=== PATIENT | male | born 1970 | race Caucasian/White ===

== ENCOUNTER 2018-07-26 01:05 | Outpatient (CLI) | payer MEDICAID, SELFPAY ==
--- NOTE | 2018-07-26 08:42 | DI.MRI_ITS ---
SYMPTOM/DIAGNOSIS: MEMORY CHANGES, HEADACHE, R41.3 BRAIN MRI: MRI examination of the brain was performed according to the usual protocol. No signal abnormality identified in the brain. Diffusion weighted imaging is within normal limits with no evidence of infarction. Susceptibility weighted imaging shows no evidence of intracranial hemorrhage. There is normal flow void in the [place] of [place] vasculature. Incidental note is made of mild deformity of the anterior contour of the medulla secondary to tortuous prominence of left vertebral artery. No associated signal abnormality is seen. Temporal bone structures appear intact. Orbital structures appear intact. CONCLUSION: No evidence of acute intracranial process.
== END 2018-07-26 01:25 ==
PROVIDERS: PCP Family Medicine; Visit Provider Nurse Practitioner Adult Health
DX: R51 Headache (principal); R41.3 Other amnesia
CPT/HCPCS: 70551

== ENCOUNTER 2018-09-01 08:45 | Emergency (ER) | payer MEDICAID, SELFPAY ==
[2018-09-01 08:53] VITALS: BP 147/87; PULSE 101; RESP 16; TEMP 37; O2SAT 97
--- NOTE | 2018-09-01 10:16 | ED.GENADUL_ITS ---
Discharge Plan Disposition Patient Disposition: HOME Condition: Stable Discharge Details Chief Complaint: RashLesion Clinical Impression: Varicella Primary Care Provider: Denis Barker ED Provider: Janet Chacon Home Meds and New Rx's Prescriptions: New valacyclovir 1 gram tablet 1,000 mg PO TID 7 Days Qty: 21 RF: 0 Continue naproxen 500 mg tablet 500 mg PO BID PRN (Reason: pain) Qty: 180 RF: 3 prochlorperazine maleate 5 mg tablet 5 mg PO Q8H PRN Qty: 30 RF: 3 topiramate [Topamax] 25 mg tablet 25 mg PO HS Qty: 60 RF: 2 Discharge Instructions Instructions: Chickenpox (ED) Additional Instructions: Take the antiviral therapy until finished. Take antihistamines to help with itching, such as Zyrtec or Asmita during the day, and Benadryl to help with sleeping at night. Wash hands frequently and be sure to keep lesions clean and dry. Wash with soap and water and apply bacitracin or Neosporin to wounds if any signs of infection such as pain, increased redness or swelling. Avoid excessive scratching of lesions as they can become secondarily infected. Follow-up with your primary care doctor in 1 week for re-evaluation. Return immediately to the emergency department any worsening or new concerning symptoms such as fever, inability to eat or drink, or any worsening symptoms. Discharge Data Discharge Date/Time-TO BE ENTERED AT DEPARTURE: 09/01/18 10:45 Discharge Physician: Janet Chacon Medical Decision Making 48yo M w/ diffuse pruritic rash on face, torso, upper extremities > lower extremities x 2 days. Recent exposure to shingles. No history of chickenpox per patient. Also admits to prodrome of subjective fever, chills, malaise, body aches. Vitals within normal limits. Afebrile. Patient appears nontoxic. Normal ENT exam. Lungs clear to auscultation. Abdomen soft and nontender. No meningeal signs. Lesions noted to scalp, face, neck, torso and upper extremities more than lower extremities appear in various stages, with papules, vesicles, erosions. Most likely consistent with varicella. As patient is immunocompetent , but to prevent complications of varicella, will treat with antiviral therapy. No signs of acute bacterial infection at this time. Patient given prescription for valacyclovir. Patient was instructed to take antihistamines as needed and directed for itching and to prevent scratching. Patient was instructed on the importance of handwashing and keeping area clean and dry to prevent secondary bacterial infection. Patient instructed to follow-up with primary care doctor for reevaluation and to return here with any worsening symptoms. HPI General Mode of arrival: ambulatory . Date/Time Provider Initiated Documentation: 09/01/18 09:22 . Limitations to Documentation: no limitations . Information obtained by: patient . HPI Narrative: Patient is a 48-year-old male who presents with diffuse pruritic rash on face, torso and upper extremities for the past 2 days. Pt states he was exposed to shingles from his father 2 weeks ago. Pt states he has never had chicken pox and he thinks this is what he has. States on the first day of rash, he developed subjective fever and chills, and body aches. He denies any other symptoms of ear pain, sore throat, cough, shortness of breath, abdominal pain, vomiting, diarrhea, recent travel, recent antibiotics, new meds/soaps/lotions/ detergents. Patient states he has been eating and drinking. No recent sexual exposure for the past 10 years. Related Data Home Medications Medication Instructions Recorded Confirmed naproxen 500 mg tablet 500 mg PO BID PRN #180 tab-cap 06/04/18 09/01/18 prochlorperazine maleate 5 mg 5 mg PO Q8H PRN #30 tab 06/24/18 09/01/18 tablet topiramate 25 mg tablet 25 mg PO HS #60 tab 06/24/18 09/01/18 valacyclovir 1,000 mg PO TID 7 Days #21 tab 09/01/18 Previous Rx's Medication Instructions Recorded naproxen 500 mg tablet 500 mg PO BID PRN #180 tab-cap 06/04/18 prochlorperazine maleate 5 mg 5 mg PO Q8H PRN #30 tab 06/24/18 tablet topiramate 25 mg tablet 25 mg PO HS #60 tab 06/24/18 valacyclovir 1,000 mg PO TID 7 Days #21 tab 09/01/18 Allergies Allergy/AdvReac Type Severity Reaction Status Date / Time No Known Allergies Allergy Unverified 09/01/18 08:58 General Stated Complaint: RashLesion HARMAN: 3 Review of Systems Review of Systems All systems reviewed & are unremarkable except as noted in HPI and below Constitutional Reports as per HPI, Denies chills and Denies fever(s) Eyes Denies blurry vision ENT Denies dizziness, Denies sore throat and Denies throat swelling Cardiovascular Denies chest pain and Denies dyspnea Respiratory Denies dyspnea Gastrointestinal Denies abdominal pain, Denies diarrhea and Denies vomiting Genitourinary Denies hematuria and Denies dysuria Musculoskeletal Denies back pain and Denies numbness Integumentary/Breasts Reports lesions and Reports rash Neurologic Denies dizziness and Denies numbness Allergic/Immunologic Denies throat swelling PFSH Arthritis (Chronic) Post concussion syndrome (Chronic) Chronic headaches (Acute) Family History Father Liver failure Family History Father Liver failure Medical History Arthritis (Chronic) Post concussion syndrome (Chronic) Chronic headaches (Acute) Social History lives independently: Yes current occupation: builder Smoking/Tobacco Use Status: Former Tobacco Use quit date: 10/31/01 alcohol intake: current alcohol intake frequency: a few times a month substance use type: marijuana Social History lives independently: Yes current occupation: builder Smoking/Tobacco Use Status: Former Tobacco Use quit date: 10/31/01 alcohol intake: current alcohol intake frequency: a few times a month substance use type: marijuana Exam Const General: cooperative and healthy appearing Orientation: alert and awake HENMT Head: normal to inspection Ears: hearing grossly normal bilaterally, external ears normal and TM's normal bilaterally General nose exam: external nose normal Face and sinus: normal facial exam Mouth: oral mucosae normal Teeth and gingiva: dentition normal Throat: posterior oropharynx normal Eyes General: appearance normal, both eyes and all related structures Eyelids: eyelids normal EOM: EOM intact bilaterally Neck Neck: normal visual inspection Lymphatic: no lymphadenopathy noted Chest Chest: normal inspection of the chest Resp Effort & Inspection: normal respiratory effort and able to speak in complete sentences Auscultation: clear to auscultation bilaterally Cardio Rate: regular rate Rhythm: regular rhythm GI Inspection: normal to inspection Palpation: soft, not firm, no guarding, no hepatosplenomegaly, no masses and nontender Auscultation: normal bowel sounds Skin Rashes: rashes noted (Diffuse noted to scalp, head, neck, torso, bilateral upper extremities, very minimal on the bilateral lower extremities - various stages - some erythematous papules, vesicles, erosions) Neuro General: alert and awake Cognition: normal cognition Speech: speech normal Gait: normal gait Motor: muscle tone normal throughout Sensory Exam: no sensory deficits noted Extrem General: normal to inspection, full ROM and normal capillary refill Psych Appearance: grossly normal Mental Status: mental status grossly normal Speech and Movement: speech and movement normal Affect: normal affect Thought Process: normal Course Vital Signs Temperature 98.6 F 09/01/18 08:53 Pulse 101 H 09/01/18 08:53 Respiratory Rate 16 09/01/18 08:53 Blood Pressure 147/87 H 09/01/18 08:53 Pulse Oximetry 97 09/01/18 08:53 Temperature 98.6 F 09/01/18 08:53 Temperature Source Skin 09/01/18 08:53 Pulse 101 H 09/01/18 08:53 Respiratory Rate 16 09/01/18 08:53 Respiratory Effort Non-Labored 09/01/18 08:53 Blood Pressure 147/87 H 09/01/18 08:53 Blood Pressure Position Sitting 09/01/18 08:53 Pulse Oximetry 97 09/01/18 08:53 Oxygen Delivery Method Room Air 09/01/18 08:53 Oxygen Flow Rate 0 09/01/18 08:53 Pain Level 0 09/01/18 08:53
[2018-09-01 10:43] VITALS: BP 132/86; PULSE 84; RESP 15; TEMP 37.1; O2SAT 97
== END 2018-09-01 10:45 | disposition home or self-care (01) ==
LOC: ER 10:44
PROVIDERS: Emergency Provider Physician Assistant; PCP Family Medicine
DX: B01.9 Varicella without complication (principal)
CPT/HCPCS: 99283

== ENCOUNTER 2018-11-21 00:20 | Outpatient (CLI) | payer MEDICAID, SELFPAY ==
--- NOTE | 2018-11-21 09:20 | DI.RAD_ITS ---
SYMPTOM/DIAGNOSIS: ? MENISCAL TEAR, INJURY, INTERNAL DERANGEMENT, PAIN, M23.209 RIGHT KNEE: Four views. No priors. There is mild narrowing of the medial femoral tibial joint space. Periarticular spurring is seen involving all three joint compartments. The soft tissues are unremarkable. IMPRESSION: Moderate degenerative changes of the right knee.
== END 2018-11-21 00:40 ==
PROVIDERS: PCP Family Medicine; Visit Provider Family Medicine
DX: M25.561 Pain in right knee (principal); M23.209 Derangement of unspecified meniscus due to old tear or injury, unspecified knee; M16.11 Unilateral primary osteoarthritis, right hip
CPT/HCPCS: 73562

== ENCOUNTER 2018-11-23 12:41 | Emergency (ER) | payer MEDICAID, SELFPAY ==
[2018-11-23 12:49] VITALS: BP 129/76; PULSE 93; RESP 16; TEMP 37; O2SAT 97
--- NOTE | 2018-11-23 12:59 | ED.GENADUL_ITS ---
Discharge Plan Disposition Patient Disposition: HOME Condition: Improving Discharge Details Chief Complaint: Orthopedic Clinical Impression: Arthritis, Strain of right knee Primary Care Provider: Denis Barker ED Provider: Reyes Jackson Home Meds and New Rx's Prescriptions: Continued naproxen 500 mg tablet 500 mg PO BID PRN (Reason: pain) Qty: 180 RF: 3 hydroxyzine HCl 25 mg tablet 25 mg PO PRN PRN (Reason: headache) Qty: 30 RF: 2 topiramate [Topamax] 100 mg tablet 100 mg PO DAILY Qty: 30 RF: 3 Discharge Instructions Instructions: Swollen Knee Joint (ED) Additional Instructions: Use crutches as needed for nonweightbearing and/or crutch walking. Continue the elevation, rest, ice to reduce discomfort with ibuprofen if needed. Follow-up with Dr. May as planned. Return to the emergency department for any acute concerns. Medical Decision Making 48-year-old male presents with ongoing knee pain that he states is recurrent and chronic. He had an outpatient evaluation including x-ray on November 21 which revealed degenerative changes without evidence of fracture. He has been referred to orthopedics. He has mild medial swelling on exam. He may have a bucket-handle meniscus tear versus exacerbation of underlying osteoarthritis given his evidence of degenerative changes on x-ray. Given crutches to be used as needed only. He will continue conservative management at home. He is stable for discharge HPI General Mode of arrival: ambulatory . Date/Time Provider Initiated Documentation: 11/23/18 12:47 . Limitations to Documentation: no limitations . History of Present Illness 48 year old M presents to the emergency department with the chief complaint of Right knee pain, medial, recurrent, described as moderate, Quality is described as aching and dull, and is localized to the right and lower extremity. Patient reports no radiation. Patient started experiencing this day(s) and it has been intermittent. Rest improves symptom(s), Movement worsens symptoms . Patient notes no other symptoms.. Patient did receive the following treatments prior to arrival, none Related Data Home Medications Medication Instructions Recorded Confirmed naproxen 500 mg tablet 500 mg PO BID PRN #180 tab-cap 06/04/18 11/23/18 hydroxyzine HCl 25 mg tablet 25 mg PO PRN PRN #30 tab 10/23/18 11/23/18 topiramate 100 mg tablet 100 mg PO DAILY #30 tab 10/23/18 11/23/18 Previous Rx's Medication Instructions Recorded naproxen 500 mg tablet 500 mg PO BID PRN #180 tab-cap 06/04/18 hydroxyzine HCl 25 mg tablet 25 mg PO PRN PRN #30 tab 10/23/18 topiramate 100 mg tablet 100 mg PO DAILY #30 tab 10/23/18 Allergies Allergy/AdvReac Type Severity Reaction Status Date / Time No Known Allergies Allergy Verified 11/23/18 12:52 General Stated Complaint: Orthopedic HARMAN: 4 Review of Systems Review of Systems For systems reviewed and otherwise negative. No falls, no numbness or tingling PFSH Medical History Arthritis (Chronic) Post concussion syndrome (Chronic) Chronic headaches (Acute) Family History Father Liver failure Social History lives independently: Yes highest education level completed: Associate degree: occupational, technical, vocational program current occupation: builder Smoking and Tabacco status: Former Tobacco Use quit date: 10/31/01 alcohol intake: current alcohol intake frequency: a few times a month substance use type: marijuana Exam Narrative Exam Narrative: GEN: awake, alert, oriented 3. Pleasant, well groomed, interactive. HEAD: Normocephalic, atraumatic ENT: Mucous membranes moist, oropharynx unremarkable, External ear exam unremarkable EYES: PERRL, EOMI EXT: Full ROM, no edema, no rash. Mild swelling and tenderness of right medial knee. No significant laxity. With full flexion of the knee there is medial clicking Neuro: Grossly normal neurologic exam, conversant, interactive. Psych: Speech fluent, thoughts congruent, affect normal Course Vital Signs Temperature 37 C 11/23/18 12:49 Pulse 93 H 11/23/18 12:49 Respiratory Rate 16 11/23/18 12:49 Blood Pressure 129/76 11/23/18 12:49 Pulse Oximetry 97 11/23/18 12:49 Temperature 37 C 11/23/18 12:49 Temperature Source Skin 11/23/18 12:49 Pulse 93 H 11/23/18 12:49 Respiratory Rate 16 11/23/18 12:49 Respiratory Effort Non-Labored 11/23/18 12:49 Blood Pressure 129/76 11/23/18 12:49 Blood Pressure Position Sitting 11/23/18 12:49 Pulse Oximetry 97 11/23/18 12:49 Oxygen Delivery Method Room Air 11/23/18 12:49 Oxygen Flow Rate 0 11/23/18 12:49 Pain Level 10 11/23/18 12:49
[2018-11-23 13:07] VITALS: BP 129/76; PULSE 93; RESP 16; TEMP 37; O2SAT 97
== END 2018-11-23 13:32 | disposition home or self-care (01) ==
PROVIDERS: Emergency Provider Emergency Medicine; PCP Family Medicine
DX: M17.11 Unilateral primary osteoarthritis, right knee (principal); S83.91XA Sprain of unspecified site of right knee, initial encounter; X58.XXXA Exposure to other specified factors, initial encounter; M25.461 Effusion, right knee
CPT/HCPCS: 99283; E0114

== ENCOUNTER 2018-12-12 11:51 | Outpatient (CLI) | payer MEDICAID, SELFPAY ==
--- NOTE | 2018-12-12 11:27 | DI.RAD_ITS ---
SYMPTOM/DIAGNOSIS: RT KNEE PAIN RIGHT KNEE: Single AP view of the right knee was obtained as requested by the physician. Comparison is 11/21/18. There appears to be no change in alignment of the right knee. Moderate joint space narrowing and periarticular spurring is seen in the medial joint compartment. There are small osteophytes seen in the lateral femoral tibial joint. IMPRESSION: incomplete right knee series. Degenerative changes present.
== END 2018-12-12 12:11 ==
PROVIDERS: PCP Family Medicine; Visit Provider Physician Assistant
DX: M25.561 Pain in right knee (principal); M17.11 Unilateral primary osteoarthritis, right knee
CPT/HCPCS: 73560

== ENCOUNTER 2019-03-20 15:56 | Outpatient (CLI) | payer MEDICAID, SELFPAY ==
--- NOTE | 2019-03-20 14:45 | DI.RAD_ITS ---
SYMPTOMS/DIAGNOSIS: LEFT SHOULDER PAIN S/P FALL ONTO LEFT SHOULDER 6 DAYS AGO, DECREASED RANGE OF MOTION, M25.512 LEFT SHOULDER: There is no evidence of a fracture or dislocation.
== END 2019-03-20 16:16 ==
PROVIDERS: PCP Family Medicine; Visit Provider Nurse Practitioner Family
DX: M25.512 Pain in left shoulder (principal); M25.812 Other specified joint disorders, left shoulder
CPT/HCPCS: 73030

== ENCOUNTER 2021-03-24 12:51 | Outpatient (CLI) | payer OTHER, SELFPAY ==
--- NOTE | 2021-03-24 14:15 | DI.RAD_ITS ---
Exam(s) XR CERVICAL SPINE COMP 4-5V EXAM: XR CERVICAL SPINE COMP 4-5V CLINICAL HISTORY: Persistent neck and arm pain. M54.2 CERVICALGIA M79.601 PAIN RT ARM M25.512. TECHNIQUE: 2D digital imaging was performed. COMPARISON: No exams were available for comparison FINDINGS: There is no evidence of acute fracture, listhesis, nor offset of the spinal laminar line. There is c alcification in the supraspinous ligament at T1 level, this calcification measuring 11 millimeters cr aniocaudal by 6 millimeters wide. No other calcifications seen behind the spinous processes. There is moderate disc space narrowing at multiple levels including C4-5, C5-6, and C6-7 levels. The other disc spaces exhibit normal height. There are multilevel degenerative changes in the facet zack nts, most prominent on the right side at C 3-4 level. There are also Luschka joint osteophytes seen bilaterally at C5-6 level. Smaller Luschka joint osteophytes at C6-7 level. No cervical ribs. IMPRESSION: Chronic degenerative disc disease and facet arthropathy as described above. Calcification in the supraspinous ligament at T1 level incidentally noted. DATA REPOSITORY: RADIATION DOSE DELIVERED:
== END 2021-03-24 13:11 ==
PROVIDERS: PCP Family Medicine; Visit Provider Nurse Practitioner Family
DX: M50.31 Other cervical disc degeneration, high cervical region (principal); M47.812 Spondylosis without myelopathy or radiculopathy, cervical region; M51.84 Other intervertebral disc disorders, thoracic region; M79.601 Pain in right arm; M25.512 Pain in left shoulder
CPT/HCPCS: 72050

== ENCOUNTER 2021-08-02 15:57 | Outpatient (REF) | payer MEDICAID, SELFPAY ==
[2021-08-02 18:49] LABS: Anion Gap 8.1 mmol/L (3-11); BUN 22 mg/dL (7-18); CO2 28.9 mmol/L (21.0-32.0); CREATININE 0.8 mg/dL (0.70-1.30); Calculated LDL 107 mg/dL (<100); Chloride 101 mmol/L (98-107); Cholesterol 178 mg/dL (<200); Glucose 87 mg/dL (74-106); HDL Cholesterol 62 mg/dL (40-60); Potassium 3.9 mmol/L (3.5-5.1); Sodium 138 mmol/L (136-145); Triglyceride 47 mg/dL (<150)
[2021-08-03 17:57] LABS: PSA, Screening 0.6 ng/mL (0.0-3.5)
== END 2021-08-02 15:58 | disposition home or self-care (01) ==
LOC: NCHCN 15:57
PROVIDERS: PCP Family Medicine; Visit Provider Physician Assistant
DX: Z12.5 Encounter for screening for malignant neoplasm of prostate (principal); R03.0 Elevated blood-pressure reading, without diagnosis of hypertension; R51.9 Headache, unspecified; M25.561 Pain in right knee
CPT/HCPCS: 80048; 80061; 84153

== ENCOUNTER → 2023-09-25 01:23 | Outpatient (CLI) | payer MEDICAID, SELFPAY ==
--- NOTE | 2023-09-25 11:05 | DI.RAD_ITS ---
Exam(s) XR CERVICAL SPINE COMP 4-5V EXAM: XR CERVICAL SPINE COMP 4-5V CLINICAL HISTORY: CERVICALGIA M54.2. TECHNIQUE: 2D digital imaging was performed. Five views were performed. COMPARISON: CR XR CERVICAL SPINE COMP 4-5V from 03/24/2021 FINDINGS: BONES: No fracture or destructive lesion. Vertebral bodies are unremarkable. DISKS: Moderate to severe narrowing of the C4-5 through C6-7 disc spaces. Facet degenerative changes present throughout. The right neural foraminal suboptimally profiled. Multilevel neural foraminal narrowing present on the right. ALIGNMENT: Cervical spinal alignment is within normal limits. The odontoid and atlantoaxial articulat ions are normal. SOFT TISSUE: Normal. The lung apices are clear. IMPRESSION: Degenerative disc changes and facet degenerative changes right neural foraminal narrowing, similar to prior. DATA REPOSITORY: RADIATION DOSE DELIVERED:
== END ==
PROVIDERS: PCP Family Medicine; Visit Provider Physician Assistant
DX: M50.322 Other cervical disc degeneration at C5-C6 level (principal); M99.61 Osseous and subluxation stenosis of intervertebral foramina of cervical region
CPT/HCPCS: 72050

== ENCOUNTER → 2023-12-20 04:22 | Outpatient (CLI) | payer MEDICAID, SELFPAY ==
--- NOTE | 2023-12-20 11:23 | DI.RAD_ITS ---
Exam(s) XR KNEE RT 3V AP,LAT,NIDIA EXAM: XR KNEE RT 3V AP,LAT,NIDIA CLINICAL HISTORY: RT KNEE PAIN, M25.561. TECHNIQUE: 2D digital imaging was performed. Three views. COMPARISON: CR XR knee RT 3V AP,lat,nidia from 11/21/2018 CR XR knee RT 1V from 12/12/2018 FINDINGS: BONES: No acute fracture is present. No bony destructive lesion is seen. JOINTS: Severe narrowing of the medial femoral tibial joint space. Some progression from prior. Per iarticular spurring. Mild varus angulation. No joint effusion is seen. SOFT TISSUE: Normal. IMPRESSION: Severe degenerative changes of the medial femoral tibial joint. DATA REPOSITORY: RADIATION DOSE DELIVERED:
== END ==
PROVIDERS: PCP Physician Assistant; Visit Provider Physician Assistant
DX: M17.11 Unilateral primary osteoarthritis, right knee (principal)
CPT/HCPCS: 73562

== ENCOUNTER → 2024-01-31 03:56 | Outpatient (CLI) | payer MEDICAID, SELFPAY ==
--- NOTE | 2024-01-31 | DI.MRI_ITS ---
Exam(s) MR CERVICAL SPINE WO EXAM: MR CERVICAL SPINE WO CLINICAL HISTORY: NECK STIFFNSS, PAIN WITH BILAT UPPER EXT WEAKNESS,M54.2 TECHNIQUE: Multiplanar multisequence MRI of the cervical spine was performed without intravenous con trast. COMPARISON: CR XR CERVICAL SPINE COMP 4-5V from 09/25/2023 FINDINGS: BONES: Vertebral body heights are maintained. Facet degenerative changes are noted throughout. Alig nment is normal. Bone marrow signal intensity is within normal limits. CERVICAL CORD: Craniovertebral junction is unremarkable. The cervical cord is normal size and signal intensity. SOFT TISSUES: Unremarkable. C2-3: Minimal disc bulging. No evidence of neural foraminal narrowing. No significant central canal stenosis. C3-4: No disc herniation or bulge is identified. No evidence of neural foraminal narrowing. No signif icant central canal stenosis. C4-5: Mild loss of disc height. Small endplate osteophytes. Minimal disc bulging. No focal disc he rniation.. Bilateralneural foraminal narrowing. No significant central canal stenosis. C5-6: Moderate loss of disc height. Moderate endplate osteophytes projecting circumferentially.Bilat eral neural foraminal narrowing. Mild central canal stenosis. C6-7: Moderate loss of disc height. Circumferentially projecting osteophytes. Bilateral neural fora alexus narrowing. Mild central canal stenosis. C7-T1: No disc herniation or bulge is identified. Bilateral neural foraminal narrowing. No significan t central canal stenosis. IMPRESSION: Degenerative disc changes, greatest at C5-6 and C6-7. Facet degenerative changes present throughout. Combination degenerative changes creates bilateral neural foraminal narrowing, greater on the right . DATA REPOSITORY:
== END ==
PROVIDERS: PCP Physician Assistant; Visit Provider Physician Assistant
DX: M50.123 Cervical disc disorder at C6-C7 level with radiculopathy (principal)
CPT/HCPCS: 72141

== ENCOUNTER 2024-03-20 13:43 | Outpatient (REF) | payer MEDICAID, SELFPAY ==
[2024-03-20 15:26] LABS: Hemoglobin A1C 5.4 % (<5.7)
[2024-03-20 16:16] LABS: Calculated LDL 88 mg/dL (<100); Cholesterol 168 mg/dL (<200); HDL Cholesterol 75 mg/dL (40-60); Triglyceride 26 mg/dL (<150)
[2024-03-20 23:04] LABS: PSA, Screening 0.8 ng/mL (<=3.5)
== END 2024-03-20 13:44 | disposition home or self-care (01) ==
LOC: NCHCN 13:43
PROVIDERS: PCP Physician Assistant; Visit Provider Physician Assistant
DX: Z13.220 Encounter for screening for lipoid disorders (principal); Z13.1 Encounter for screening for diabetes mellitus; Z12.5 Encounter for screening for malignant neoplasm of prostate
CPT/HCPCS: 80061; 84153; 83036